=== PATIENT | female | born 1965 | race African-American/Black ===

== ENCOUNTER 2018-03-12 11:19 | Outpatient (CLI) | payer BC ==
--- NOTE | 2018-03-12 12:16 | ULT ---
THYROID ULTRASOUND: Date: 03/12/18 HISTORY: Recurrent thyroid nodule. COMPARISON: None. TECHNIQUE: Sagittal and transverse imaging of the thyroid gland is performed. FINDINGS: Thyroid isthmus measures 0.2 cm. Right thyroid lobe measures 3.7 x 1.8 x 1.2 cm. Left thyroid lobe measures 3.9 x 1.6 x 1.0 cm. Slightly complex cyst in the upper to mid aspect of the right thyroid lobe measuring 0.3 cm. Solid nodule in the lower pole of the left thyroid lobe measuring 0.8 x 0.8 x 1.1 cm. IMPRESSION: Solitary solid nodule in the lower pole left thyroid lobe with a TI-RADS calculator score of TR4. Fol low-up imaging in 1 year is recommended. POS: QUE
== END 2018-03-12 11:20 | disposition home or self-care (01) ==
LOC: SCSULT 11:19
PROVIDERS: ATTEND Internal Medicine
DX: E04.1 Nontoxic single thyroid nodule (principal)
CPT/HCPCS: 76536